=== PATIENT | male | born 1980 | race Caucasian/White ===

== ENCOUNTER 2019-03-08 20:37 | Emergency (ER) | payer SELFPAY ==
[2019-03-08 21:10] VITALS: BP 123/76; PULSE 109; RESP 20; TEMP 36.6; O2SAT 96; BMI 26.2
--- NOTE | 2019-03-08 22:06 | ECG_ITS ---
Measurements Intervals [place] Rate: 97 P: 64 IN: 153 QRS: 66 QRSD: 89 T: 63 QT: 318 QTc: 406 SINUS RHYTHM No previous ECG available for comparison Electronically Signed On 03-09-2019 16:17:32 CHASSIS INSPECTOR by Nathanael Ding M.D. [email or web address]
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
--- NOTE | 2019-03-08 22:06 | XR_ITS ---
WS: [id number] CHEST 2 VIEWS HISTORY: Chest pain for one week. COMPARISON: 10/15/2016 Lungs: Clear with no abnormality. No pleural effusion or pneumothorax. Cardiac size: Normal. Mediastinum/Aorta: Normal mediastinum. Bones: Normal. XR/XR chest 2V* [id number] IMPRESSION: Normal chest.
== END 2019-03-08 23:14 | disposition home or self-care (01) ==
PROVIDERS: Emergency Provider Emergency Medicine
DX: R06.00 Dyspnea, unspecified (principal); R07.89 Other chest pain
CPT/HCPCS: 71046; 93005; 99281

== ENCOUNTER 2019-08-04 22:37 | Emergency (ER) | payer SELFPAY ==
[2019-08-04 22:40] VITALS: BP 114/66; PULSE 97; RESP 18; TEMP 37.1; O2SAT 96; BMI 25.1
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
[2019-08-04] MEDS: HYDROcodone-acetaminophen 5-325 mg Tablet 1 TAB PO (23:13)
[2019-08-05 01:40] VITALS: BP 116/80; PULSE 70; RESP 14; O2SAT 96
[2019-08-05 01:42] LABS: Anion Gap 16.5 (5-19); Blood Urea Nitrogen 16 mg/dL (6-20); Calcium 9.2 mg/dL (8.5-10.5); Carbon Dioxide 24 mmol/L (22-29); Chloride 103 mmol/L (98-107); Glomerular Filtration Rate 94.4 mL/min (90-130); Glucose 91 mg/dL (65-115); Osmolality Calculated 286 mOsm/kg (285-295); Potassium 3.5 mmol/L (3.5-5.1); Sodium 140 mmol/L (136-145)
--- NOTE | 2019-08-05 01:45 | PC.NURSE ---
read and agree with assessment
== END 2019-08-05 01:45 | disposition home or self-care (01) ==
PROVIDERS: Emergency Provider Emergency Medicine
DX: S30.0XXA Contusion of lower back and pelvis, initial encounter (principal); W19.XXXA Unspecified fall, initial encounter; F17.210 Nicotine dependence, cigarettes, uncomplicated
CPT/HCPCS: 12345; 36415; 72100; 80048; 99281; 99283

== ENCOUNTER 2019-08-11 19:11 | Emergency (ER) | payer SELFPAY ==
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
[2019-08-11 19:36] VITALS: PULSE 77; RESP 16; TEMP 36.4; O2SAT 99; BMI 29.5
[2019-08-11] MEDS: HYDROcodone-acetaminophen 7.5-325 mg Tablet 1 TAB PO (20:15)
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
[2019-08-11 21:03] VITALS: BP 134/88; PULSE 77; RESP 18; O2SAT 98
--- NOTE | 2019-08-12 08:20 | DCPLANNER ---
contact manager had message to schedule a follow up appointment for patient with ortho. contact manager called ortho, spoke with Ruth, gave clinic patients information. contact manager was told that patients information would be printed and reviewed. Clinic will call patient with appointment information.
--- NOTE | 2019-08-12 15:41 | DCPLANNER ---
Patient has a follow up appointment scheduled for , August 19, 2019 at 9:30. Pat from ortho called pillowcase sewer and informed pillowcase sewer that an appointment has been scheduled, but is unable to reach patient at this time to give patient the appointment information.
--- NOTE | 2019-08-24 11:20 | DCPLANNER ---
Patient did attend appointment scheduled for 08.19.19 with ortho.
== END 2019-08-11 21:07 | disposition home or self-care (01) ==
PROVIDERS: Emergency Provider Emergency Medicine
DX: S43.101A Unspecified dislocation of right acromioclavicular joint, initial encounter (principal); V86.55XA Driver of 3- or 4- wheeled all-terrain vehicle (ATV) injured in nontraffic accident, initial encounter; F17.210 Nicotine dependence, cigarettes, uncomplicated
CPT/HCPCS: 12345; 29240; 73030; 99282; 99283

== ENCOUNTER 2019-08-23 15:08 | Outpatient (CLI) | payer SELFPAY ==
--- NOTE | 2019-08-23 15:24 | PC.NURSE ---
Patient here for outpatient Covid swab. Specimen collected utilizing N95 mask, gown, goggle, and gloves and after identification of patient verified via name and . Patient tolerated swab fair. Specimen to lab.
[2019-08-24 20:21] LABS: Coronavirus Lab Test PTC Negative
== END 2019-08-23 15:09 | disposition home or self-care (01) ==
LOC: LAB 15:10
PROVIDERS: Visit Provider Orthopaedic Surgery
DX: Z01.818 Encounter for other preprocedural examination (principal)
CPT/HCPCS: 87635

== ENCOUNTER 2019-08-25 06:18 | Day surgery (SDC) | payer SELFPAY ==
[2019-08-25] VITALS (11 sets, daily range): BP systolic 97–121; BP diastolic 67–83; PULSE 71–85; RESP 16–18; TEMP 36.4–36.9; O2SAT 90–100
[2019-08-25] MEDS: sodium chloride 0.9% 1,000 ML 30 ML IV (06:50)
--- NOTE | 2019-08-25 06:55 | W.PM.OPSUD ---
Surgery/Procedure H&P Update DATE OF PROCEDURE: August 25, 2019 DATE H&P PERFORMED: 08/19/19 PREOP DIAGNOSIS: Right acromioclavicular joint separate PLANNED PROCEDURE: Operation Date: 08/25/19 08:40 Proposed Procedures p AC Separation Repair (Shoulder)(Right) - Vu Gray MD
--- NOTE | 2019-08-25 08:05 | ANES.PREANE2 ---
Pre-Anesthetic Assessment Pre-Anesthetic Assessment: Height/Weight: Height 1.75 m Weight 80.739 kg Temp Pulse Resp BP Pulse Ox 98 F 85 18 105/74 98 08/25/19 06:33 08/25/19 06:33 08/25/19 06:33 08/25/19 06:33 08/25/19 06:33 Preop Diagnosis: Right acromioclavicular joint separate Proposed Procedure: Operation Date: 08/25/19 08:40 Proposed Procedures p AC Separation Repair (Shoulder)(Right) - Vu Gray MD Familial anesthetic complications: none Was Beta Jeannie taken within 24 hours: N/A Last intake: Intake Last Liquid Date 08/24/19 Last Liquid Time 20:00 Last Solid Date 08/24/19 Last Solid Time 20:00 Last Intake: 20:00 Social: Social History: Alcohol (on weekends) and Tobacco Packs per day: 1 Pack years: 20+ Exam: Pre-Anes Outpt Exam: alert, oriented x 3, clear to auscultation bilaterally and regular rate & rhythm Airway: Submandibular: WNL Cervical ROM: WNL MP: 2 Dentition: Full Additional comments: poor missing upper middle Pulmonary: Pulmonary: None reported CV/HEM: CV/HEM: None reported : : None reported Hepatic: Hepatic: None reported GI: GI: None reported Metabolic: Metabolic: None reported Musc/skel: Musc/skel: None reported Neuropsych: Neuropsych: None reported Anesthetic Plan: ASA status: 2 Anesthesia: Anesthesia Evaluation, General and Regional (specify below) (ISB on Right) Risk of > 500 ml blood loss (7ml/kg in children): No Meds/Allergies Current Medications: Current Medications Generic Name Dose Route Start Last Admin Trade Name Freq PRN Reason Stop Dose Admin Sodium Chloride 1,000 mls @ 30 ml s/hr 08/25/19 06:30 08/25/19 06:50 Sodium Chloride 0.9% IV 08/26/19 06:29 30 mls/hr .Q24H HASMUKH Administration PFSH Anesthesia PFSH: Social History Smoking and tobacco status: current every day smoker Data Anesthesia Cardiac Studies: No Data to Display
[2019-08-25] MEDS: fentaNYL 50 mcg/mL INJ 2mL 100 MCG IVP (09:00)
[2019-08-25] MEDS: midazolam 1 mg/mL INJ 2 mL 2 MG IVP (09:00)
--- NOTE | 2019-08-25 09:55 | ANES.PROC ---
Anesthesia Procedures Procedure/Date: 08/25/19 Nerve Block ^: Nerve Block 1: Main Anesthesia: general anesthesia Time Out Performed: Yes Consent: requested by attending/covering physician, risks and benefits reviewed, patient agrees to proceed and other (Right) Nerve block location: interscalene Anesthesia monitors applied: pulse oximetry and BP cuff Nerve block position: supine Anesthetic Used: lidocaine 1% and ropivicaine 0.5% Amount of anesthesia used (mL): 30 Nerve Stimulator Used?: Yes Interscalene/Femoral BLK: 2 stimuplex 22 g needle used for position and inplane approach Injection: neg aspiration of heme Patient Tolerated Procedure: well Complications: none Additional Comments: Full Shoulder and arm twitch at 1.2mA; response maintained but faded at 0.4mA; no paresthesia or complication. Tolerated well with sedation and encouragement.
--- NOTE | 2019-08-25 11:32 | P.OP_ITS ---
Operative Report Date of procedure: August 25, 2019 Pre-op Diagnosis: Right acromioclavicular joint separation Post-op diagnosis: same Post-op Findings: Same Procedure Done: Open right acromioclavicular joint ligament reconstruction with autologous semi-tendinosis hamstring graft, distal clavicle excision Pathology: none sent Surgeon: Vu Gray Anesthesia: General and Nerve Block (Interscalene block) Estimated blood loss (mL): 100 Complications: None Findings: The patient had a type III right acromioclavicular joint separation with dorsal dislocation of the clavicle relative acromion that was passively reducible Condition: stable Disposition: PACU Procedure: The patient was taken to the operating room and given 2 g of Ancef. He is prepped and draped his right lower extremity exposed in the beachchair position. A timeout was performed. A tourniquet was inflated to 300 mmHg. A 3 cm long incision was made over the Pez anserine tendons. The sartorius fascia was split revealing a healthy appearing semi-tendinosis tendon. Using a scalpel it was elevated off its insertion on the medial tibia. Closed-end tendon stripper was used to harvest the tendon proximally. On the back table was freed of muscle and both ends fixed with a ultra braid suture. The sartorius fascia was closed with 2-0 Vicryl. The subcutaneous tissues were closed with 2-0 Vicryl. The skin was closed with skin beatriz. 0 dressings were applied. The right shoulder was then prepped in the usual fashion with the arm free. Incision was made from the anterior border of the acromion to the coracoid over a distance of approximately 4 cm. Dissection was carried down to the deltoid musculature with electrocautery and superior and inferior flaps were freed allowing visualization of the distal clavicle dorsal acromion and deltoid to the level of the coracoid. The cautery was then used to elevate the deltoid t rapezial fascia off the distal clavicle. Blunt Homans were placed anteriorly and posteriorly and a 5 mm distal section of the clavicle removed to eliminate as a source of future arthritis and pain. The deltoid was split in line with its fibers revealing to the coracoid. A suture passer was used to shuttle 1 ultra braid suture around the base of the coracoid. A 4 mm drill hole was made from the dorsal clavicle just above the conoid tubercle. An ultra braid suture was passed through that tunnel. A second trapezoid tunnel 4.7 mm in diameter was made 20 mm posterior and lateral to that drill hole. An Ethibond suture was passed through that. Next the ultra braid sutures from one end of the semi-tendinosis graft and 2 ultra tapes were shoulder around the coracoid. The tapes and one end of the semi-tendinosis graft was shuttled through the conoid hole in the clavicle. The free semi- tendinosis and was shuttled through the trapezoid tunnel. Ultra tape sutures were secured drawing the clavicle down to the coracoid with visualization of the resected acromioclavicular joint during the process. The free ends of semi- gnosis tendon were then sutured to each other providing the tenderness restraint to the coracoclavicular ligament reconstruction. Next a 1.8 mm Q fix anchor was placed centrally in the acromion. 2 free ends of suture were brought over the acromioclavicular joint and secured with a luggage tag suture to the dorsal acromion rebuilding the dorsal and posterior capsule. A free needle was used to past the free ends of suture through the anterior capsule and tendon and posterior capsule and tendon respectively and secured further biological a reinforcing the capsular repair. The wound was irrigated with saline. The deltotrapezial fascia was closed with 0 Ethibond. The subcutaneous tissues were closed with 2-0 Vicryl. The skin was closed with skin beatriz. 0 dressings were applied. The patient was placed in a sling, extubated, and taken recovery in stable condition.
[2019-08-25] MEDS: meperidine 50 mg/mL INJ 12.5 MG IVP (11:35)
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
[2019-08-25] MEDS: oxyCODONE-APAP 5-325 mg Tablet 1 TAB PO (12:31)
== END 2019-08-25 12:53 | disposition home or self-care (01) ==
PROVIDERS: Visit Provider Orthopaedic Surgery
PROC: (CPT 23120; principal; 2019-08-25 08:40)
PROC: (CPT 23120; 2019-08-25 08:40)
DX: S43.101A Unspecified dislocation of right acromioclavicular joint, initial encounter (principal); V86.95XA Unspecified occupant of 3- or 4- wheeled all-terrain vehicle (ATV) injured in nontraffic accident, initial encounter; F17.210 Nicotine dependence, cigarettes, uncomplicated; Z79.891 Long term (current) use of opiate analgesic
CPT/HCPCS: 23120; 23552; 12345; 96374; 96375; C1713; J0690; J2175; J2250; J2370; J2405; J2704; J2795; J3010; J3490; J7030

== ENCOUNTER 2019-10-06 12:00 | Emergency (ER) | payer SELFPAY ==
[2019-10-06 13:10] VITALS: BP 124/81; PULSE 101; RESP 14; TEMP 37; O2SAT 100; BMI 25.1
--- NOTE | 2019-10-06 14:01 | ED_ITS ---
HPI - Skin/Abscess/Foreign Bdy General: Chief complaint: Skin/Abscess/Foreign Body Stated complaint: hook in knee Time Seen by Provider: 10/06/19 13:13 Source: patient Mode of arrival: ambulatory Limitations: no limitations History of Present Illness: HPI narrative: Patient is a 38-year-old male who presents to ED today with complaints of a fishhook to his left knee is been pre sent over the past 3 days. Patient states he did not seek medical attention immediately because he could not find a ride. Last tetanus was 3 years ago. He has noticed a small amount of drainage from the fishhook site. Patient ambulating on extremity normally. He still has full range of motion of his knee. complaint: foreign body Onset (ago): day(s) Tetanus up to date: yes Location: LLE Associated symptoms: Reports no associated symptoms Review of Systems Musc: Reports: other (fish hook to L knee) [facility] ED PFSH: Social History Smoking and tobacco status: current every day smoker Physical Exam Const: COMMON NORMALS: no acute distress, average body habitus, patient oriented x3, no limitations, healthy appearing, alert and well nourished Extremity: OTHER: small barbed fish hook to L lateral knee; superficial; scant amount of redness and purulent drainage noted Neuro: COMMON NORMALS: patient oriented x3 SENSORIUM/ORIENTATION: Yes alert Skin: OTHER: see extremity assessment Procedures Foreign Body Removal Time Out Performed: no Site: left and lower extremity Description of foreign body: fish hook Sedation/Analgesia: other (local lidocaine) Technique: manual removal (hemostats to push barbed hook through, britany cut, hook retracted ) Confirmed by:: direct visualization Complications: none Post-procedure exam: awake, alert Neurovascular: normal distal pulse, normal capillary fill, distal light touch sensation intact, distal motor function normal, no signs of compartment syndrome and no change from pre-procedure Course Vital Signs: Vital signs: Vital Signs Temperature 98.6 F 10/06/19 13:10 Pulse Rate 101 H 10/06/19 13:10 Respiratory Rate 14 10/06/19 13:10 Blood Pressure 124/81 10/06/19 13:10 Pulse Oximetry 100 10/06/19 13:10 Discharge Plan Discharge Patient Disposition: Home Clinical Impression: Fish hook injury of left lower leg Qualifiers: Encounter type: initial encounter Qualified Code(s): S89.92XA - Unspecified injury of left lower leg, initial encounter Condition: Stable Prescriptions: New Keflex 500 mg capsule 500 mg PO Q6H 7 Days Qty: 28 RF: 0 No Action oxycodone-acetaminophen [Percocet] 5-325 mg tablet 1 tab PO Q4H PRN (Reason: pain) 7 Days Qty: 40 RF: 0 oxycodone-acetaminophen [Percocet] 5-325 mg tablet 1 tab PO Q4H PRN (Reason: pain) 7 Days Qty: 40 RF: 0 methocarbamol [Robaxin-750] 750 mg tablet 750 mg PO Q6H Qty: 30 RF: 0 naproxen [Naprosyn] 500 mg tablet 500 mg PO BID PRN (Reason: pain) Qty: 20 RF: 0 Percocet 5-325 mg tablet 1 tab PO Q4H PRN (Reason: pain) Qty: 30 RF: 0 Discharge Orders: Discharge Order (Routine); Ordered 10/06/19 Ordered By: Coreen Fowler Activity Restrictions/Additional Instructions: Return to the emergency department for worsening redness, swelling, drainage, or fevers. Coding Level of Care Code ED Manager Dental for Demetria Bazan
== END 2019-10-06 14:14 | disposition home or self-care (01) ==
PROVIDERS: Emergency Provider Physician Assistant
DX: S81.042A Puncture wound with foreign body, left knee, initial encounter (principal); W26.8XXA Contact with other sharp object(s), not elsewhere classified, initial encounter; F17.210 Nicotine dependence, cigarettes, uncomplicated
CPT/HCPCS: 12345; 99281

== ENCOUNTER → 2020-11-02 13:39 | Outpatient (BNVA) | payer OTHER, SELFPAY | PROVIDERS: Visit Provider Nurse Practitioner Family | DX: Z20.822 Contact with and (suspected) exposure to COVID-19 (principal) | CPT/HCPCS: 87426; 87635 ==

== ENCOUNTER 2021-02-26 22:43 | Emergency (ER) | payer SELFPAY ==
[2021-02-26 22:56] VITALS: BP 134/78; PULSE 121; RESP 18; TEMP 36.8; O2SAT 97; BMI 30.1
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
[2021-02-26] MEDS: HYDROcodone-acetaminophen 5-325 mg Tablet 1 TAB PO (23:42)
[2021-02-26] MEDS: tetanus-dipt-pertussis 0.5 mL SDV IM (23:44)
[2021-02-27] MEDS: HYDROcodone-acetaminophen 5-325 mg Tablet 1 TAB PO (00:51)
[2021-02-27 01:01] VITALS: BP 144/77; PULSE 78; RESP 18; O2SAT 96
--- NOTE | 2021-02-27 09:23 | DCPLANNER ---
Addendum entered by Peyton Medina 03/09/21 12:09: Patient had a follow up appointment scheduled with ortho on 03.06.[address] Gray at ortho - patient did attend appointment. Original Note: front end manager had message to schedule a follow up appointment for patient with ortho. front end manager called the ortho clinic, spoke with Lindsey, gave clinic patients information. front end manager was told that patients information would be printed and reviewed. Clinic will call patient with appointment information.
== END 2021-02-27 01:00 | disposition home or self-care (01) ==
PROVIDERS: Emergency Provider Nurse Practitioner Family
DX: S52.225A Nondisplaced transverse fracture of shaft of left ulna, initial encounter for closed fracture (principal); S82.54XA Nondisplaced fracture of medial malleolus of right tibia, initial encounter for closed fracture; S01.01XA Laceration without foreign body of scalp, initial encounter; F17.210 Nicotine dependence, cigarettes, uncomplicated; Y00.XXXA Assault by blunt object, initial encounter; Z23 Encounter for immunization
CPT/HCPCS: 12002; 29125; 29515; 70450; 72125; 73090; 73610; 90471; 90715; 99283

== ENCOUNTER 2021-03-04 13:12 | Emergency (ER) | payer SELFPAY ==
[2021-03-04 14:04] VITALS: BP 117/80; PULSE 95; RESP 20; TEMP 36.5; O2SAT 97; BMI 30.1
--- NOTE | 2021-03-04 16:05 | W.ED.GENADLT ---
HPI - General Adult General: Chief complaint: General Medical Stated complaint: right leg recheck and pain in right leg Time Seen by Provider: 03/04/21 14:10 History of Present Illness: HPI narrative: Patient states that posterior leg splint is irritating his fracture. He has unwrapped it and rewrapped it and now says he is out of pain medication and is requesting more pain medication. Patient does have crutches to use. Onset (ago): day(s) Location: lower extremity Associated symptoms: Deny chest pain, dyspnea, headache(s), nausea, rash or vomiting Review of Systems Const: Denies: fever(s), chills or body aches Eyes: Denies: change in vision or blurry vision ENMT: Denies: throat pain or nasal congestion Card: Denies: chest pain or dyspnea on exertion Resp: Denies: dyspnea, productive cough or non-productive cough GI: Denies: abdominal pain, nausea or vomiting : Denies: difficulty urinating Musc: Reports: extremity pain (Says that part of the cast is rubbing on leg. Denies any abrasion or ulcer) Skin/Breast: Denies: rash Neuro: Denies: headache(s) Psych: Denies: anxiety or depression Gil/Lymph: Denies: easy bruising PFSH ED PFSH: Social History Smoking and tobacco status: current every day smoker Physical Exam Const: COMMON NORMALS: no acute distress GENERAL APPEARANCE: cooperative Resp: COMMON NORMALS: normal respiratory effort Extremity: LEFT LOWER EXTREMITY: Yes lower leg (Cast in place. OCL does appear twisted. No swelling abrasions noted.) Left lower leg: Yes neurovascular exam (Intact.) Course Vital Signs: Vital signs: Vital Signs Temperature 97.7 F 03/04/21 14:04 Pulse Rate 95 03/04/21 14:04 Respiratory Rate 20 H 03/04/21 14:04 Blood Pressure 117/80 03/04/21 14:04 Pulse Oximetry 97 03/04/21 14:04 Discharge Plan Discharge Patient Disposition: Home Clinical Impression: Fracture of medial malleolus, right, closed Qualifiers: Encounter type: subsequent encounter Fracture alignment: nondisplaced Fracture healing: with routine healing Qualified Code(s): S82.54XD - Nondisplaced fracture of medial malleolus of right tibia, subsequent encounter for closed fracture with routine healing Condition: Stable Prescriptions: New Celebrex 100 mg capsule 100 mg PO BID Qty: 20 RF: 0 Discontinued naproxen [Naprosyn] 500 mg tablet 500 mg PO BID PRN (Reason: pain) Qty: 20 RF: 0 No Action hydrocodone-acetaminophen 5-325 mg tablet 1 tab PO Q6H PRN (Reason: pain) Qty: 14 RF: 0 Discharge Orders: Discharge ED (Routine); Ordered 03/04/21 Ordered By: Nicolas Powell Discharge Diet: Usual diet Discharge Activity: Increase activity as tolerated Activity Restrictions/Additional Instructions: Continue use crutches. Take medication as directed. Follow-up with your orthopedic appointment scheduled on . Coding Level of Care Code ED Retail Sales Associate Bilingual for Demetria Bazan
[2021-03-04 16:49] VITALS: BP 116/88; PULSE 89; RESP 18; O2SAT 97
== END 2021-03-04 16:51 | disposition home or self-care (01) ==
PROVIDERS: Emergency Provider Nurse Practitioner Family
DX: S82.54XA Nondisplaced fracture of medial malleolus of right tibia, initial encounter for closed fracture (principal); F17.210 Nicotine dependence, cigarettes, uncomplicated; X58.XXXA Exposure to other specified factors, initial encounter
CPT/HCPCS: 99282

== ENCOUNTER → 2021-03-06 09:50 | Outpatient (BNVA) | payer BC, SELFPAY | PROVIDERS: Referring Provider Nurse Practitioner Family; Visit Provider Orthopaedic Surgery | DX: S52.692A Other fracture of lower end of left ulna, initial encounter for closed fracture (principal); X58.XXXA Exposure to other specified factors, initial encounter | CPT/HCPCS: 73090 ==

== ENCOUNTER 2021-03-06 14:17 | Outpatient (CLI) | payer SELFPAY | END 2021-03-06 14:18 | disposition home or self-care (01) | LOC: SPT 14:22 | PROVIDERS: Visit Provider Orthopaedic Surgery | DX: Z46.89 Encounter for fitting and adjustment of other specified devices (principal); S82.54XD Nondisplaced fracture of medial malleolus of right tibia, subsequent encounter for closed fracture with routine healing; S52.692D Other fracture of lower end of left ulna, subsequent encounter for closed fracture with routine healing; X58.XXXD Exposure to other specified factors, subsequent encounter | CPT/HCPCS: 97760; L3982; L4361 ==

== ENCOUNTER → 2021-03-28 08:29 | Outpatient (BNVA) | payer SELFPAY | PROVIDERS: Visit Provider Orthopaedic Surgery | DX: S82.54XD Nondisplaced fracture of medial malleolus of right tibia, subsequent encounter for closed fracture with routine healing (principal); X58.XXXD Exposure to other specified factors, subsequent encounter | CPT/HCPCS: 73090; 73610 ==

== ENCOUNTER → 2021-05-01 13:15 | Outpatient (BNVA) | payer BC, SELFPAY | PROVIDERS: Visit Provider Orthopaedic Surgery | DX: S82.51XA Displaced fracture of medial malleolus of right tibia, initial encounter for closed fracture (principal); S52.209A Unspecified fracture of shaft of unspecified ulna, initial encounter for closed fracture; X58.XXXA Exposure to other specified factors, initial encounter | CPT/HCPCS: 73090 ==

== ENCOUNTER → 2021-05-10 00:01 | Outpatient (BNVA) | payer BC, SELFPAY | PROVIDERS: Visit Provider Orthopaedic Surgery | DX: Z20.822 Contact with and (suspected) exposure to COVID-19 (principal) | CPT/HCPCS: 87635 ==

== ENCOUNTER 2021-05-17 06:20 | Day surgery (SDC) | payer BC, SELFPAY ==
[2021-05-16 12:52] VITALS: BMI 31.7
[2021-05-17] VITALS (17 sets, daily range): BP systolic 118–181; BP diastolic 81–111; PULSE 77–93; RESP 11–23; TEMP 36.1–36.6; O2SAT 94–100
--- NOTE | 2021-05-17 | SCC_ITS ---
Procedure done: Open reduction internal fixation left ulnar shaft 14.8 seconds of fluoroscopic guidance, for a cumulative dose of 0.38 mGy, was provided to Dr. Gray by the radiology department. C-arm images of the LEFT forearm were saved for the patient's permanent record. [facility]
--- NOTE | 2021-05-17 | XR_ITS ---
WS: [id number] INTRAOPERATIVE TECHNIQUE: 4 Spot fluoroscopic images for intraoperative purposes. FLUOROSCOPY TIME: 14.8 seconds CLINICAL INFORMATION: fracture of left ulnar shaft COMPARISON: None. FINDINGS: Plate and screw fixation involving the distal 3rd ulna. Hardware appears in good position. Fixated fr acture with callus formation. XR/XR forearm LT 2V [id number] IMPRESSION: Images obtained for intraoperative purposes.
[2021-05-17] MEDS: sodium chloride 0.9% 1,000 ML 30 ML IV (07:00)
--- NOTE | 2021-05-17 07:55 | ANES.PREANE2 ---
Pre-Anesthetic Assessment Height/Weight: Height 1.75 m Weight 97.522 kg Temp Pulse Resp BP Pulse Ox 97 F L 88 18 133/91 96 05/17/21 06:53 05/17/21 06:53 05/17/21 06:53 05/17/21 06:53 05/17/21 06:53 Preop Diagnosis: Fracture Left ulnar shaft Operation Date: 05/17/21 07:25 Proposed Procedures p ORIF Wrist 09602/closed fracture of L ulnar shaft S52.225A(Left) - Vu Gray MD Familial anesthetic complications: None Was Beta Jeannie taken within 24 hours: N/A Was Clonidine taken within 24 hours: N/A Last intake: Intake Last Liquid Date 05/16/21 Last Liquid Time 20:00 Last Solid Date 05/16/21 Last Solid Time 20:00 Social Tobacco and No alcohol Exam alert, oriented x 3 and regular rate & rhythm B/L wheezing Airway Submandibular: within normal limits Cervical ROM: within normal limits Mallampati: Class II Dentition: chipped Comments: Comments: Missing teeth Poor dentition Denies loose teeth Pulmonary None reported CV/HEM None reported METS > 4 None reported Hepatic None reported GI None reported Metabolic None reported Musc/skel Ulna and malleolus fractures Neuropsych None reported Anesthetic Plan ASA status: 2 Anesthesia: Anesthesia Evaluation and General Other: We discussed risk and benefits of general anesthesia including PONV, sore throat (sometimes severe), corneal abrasion, positioning and peripheral nerve injuries, life threatening allergic reaction, post operative ICU admission requiring prolonged intubation, stroke, heart attack, , and rare incidences of recall. Patient consents to proceed with general anesthesia. Risk of > 500 ml blood loss (7ml/kg in children): No Other Pertinent Information Albuterol ordered pre op Medications/Allergies Home Medications Medication Instructions Recorded Confirmed Last Taken Type celecoxib 100 mg capsule (Celebrex) 100 mg PO BID #20 cap 03/04/21 05/17/21 2 Days Ago Rx ~05/15/21 Cam Walker #1 ea 03/06/21 05/16/21 Unknown Rx Fast Form #1 ea 03/06/21 05/16/21 Unknown Rx Walker #1 ea 03/06/21 05/16/21 Unknown Rx Allergies Allergy/AdvReac Type Severity Reaction Status Date / Time No Known Allergies Allergy Verified 05/17/21 06:39 [facility] Anesthesia Social History Smoking and tobacco status: current every day smoker Data Anesthesia Cardiac Studies: No Data to Display
--- NOTE | 2021-05-17 07:59 | PC.NURSE ---
breathing treatment ordered by Dr. Carty and given by RT.
--- NOTE | 2021-05-17 08:31 | W.PM.OPSUD ---
Surgery/Procedure H&P Update DATE OF PROCEDURE: May 17, 2021 DATE H&P PERFORMED: 05/01/21 H&P UPDATE INFORMATION: I have reviewed H&P completed within last 30 days PREOP DIAGNOSIS: Fracture Left ulnar shaft PLANNED PROCEDURE: Operation Date: 05/17/21 07:25 Proposed Procedures p ORIF left ulnar shaft
--- NOTE | 2021-05-17 09:46 | PM.OP ---
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 He had clear periosteal callus consistent with an impending hypertrophic nonunion. Surgical stabilization was chosen to better stabilize the fracture and facilitate healing Procedure: The patient was taken to the operating room and given a general anesthesia. He was prepped and draped in the supine position with his left arm exposed on a fracture table. A timeout was performed. An 8 cm long incision was made over the subcutaneous border of the ulna centered over the fracture. I dissection was carried down to the lateral ulna. Electrocautery was used to elevate the adherent periosteum and scar tissue about the fracture laterally. A [place] was then used to mobilize soft tissues anteriorly and posteriorly subperiosteally over the bone. Callus was removed over the lateral cortex of the ulna with a rongeur. 6-hole compression plate was fashioned over the ulna. It was fixed with 3 nonlocking screws proximally and distally. Applying compression across the fracture site. Intraoperative imaging showed satisfactory position of the hardware. Wounds were irrigated with saline. Deep tissues were closed with 2-0 Vicryl and subcutaneous tissues with 3-0 Vicryl. The skin was closed with skin beatriz. Xeroflo gauze 4 x 4's compressive web roll and a volar splint were applied. The patient was extubated taken to the recovery in stable condition.
[2021-05-17] MEDS: HYDROmorphone 1 mg/mL INJ 1 mL 0.5 MG IVP ×3 (10:01→10:21)
--- NOTE | 2021-05-17 10:10 | PC.NURSE ---
Al Gonsalez CRNA stated nurse could move to Dilaudid for pain control.
[2021-05-17] MEDS: HYDROcodone-acetaminophen 7.5-325 mg Tablet 1 TAB PO (11:07)
--- NOTE | 2021-05-17 13:18 | ANE.PACU2 ---
Inpatient post-anesthesia follow up: Airway intact: Yes Vital signs: Temperature 97.9 F Pulse Rate 79 Respiratory Rate 14 Blood Pressure 169/103 Pulse Oximetry 95 Oxygen Delivery Me thod Room Air Oxygen Flow Rate Fraction of Inspir ed Oxygen Hydration adequate: Yes Nausea and vomiting: No Pain level: 3 Mental status: Baseline Additional Comments: Pain improved
== END 2021-05-17 11:32 | disposition home or self-care (01) ==
PROVIDERS: Visit Provider Orthopaedic Surgery
PROC: (CPT 25545; principal; 2021-05-17 08:45)
DX: S52.202K Unspecified fracture of shaft of left ulna, subsequent encounter for closed fracture with nonunion (principal); X58.XXXD Exposure to other specified factors, subsequent encounter; F17.210 Nicotine dependence, cigarettes, uncomplicated
CPT/HCPCS: 25545; 73090; 76000; 94640; C1713; J0690; J1100; J1170; J1580; J1885; J2405; J2704; J3010; J7030; J7611

== ENCOUNTER → 2021-06-01 10:04 | Outpatient (BNVA) | payer BC, SELFPAY | PROVIDERS: Visit Provider Orthopaedic Surgery | DX: S82.51XA Displaced fracture of medial malleolus of right tibia, initial encounter for closed fracture (principal); X58.XXXA Exposure to other specified factors, initial encounter | CPT/HCPCS: 73090 ==

== ENCOUNTER → 2021-07-03 13:00 | Outpatient (BNVA) | payer BC, SELFPAY | PROVIDERS: Visit Provider Nurse Practitioner Family | DX: Z98.890 Other specified postprocedural states (principal); Z87.81 Personal history of (healed) traumatic fracture | CPT/HCPCS: 73090 ==

== ENCOUNTER 2022-02-01 12:27 | Emergency (ER) | payer BC, SELFPAY ==
[2022-02-01 12:31] VITALS: BP 139/77; PULSE 100; RESP 18; TEMP 36.6; O2SAT 95; BMI 42.2
--- NOTE | 2022-02-01 13:05 | W.ED.MALEGU ---
HPI - Male Genitourinary General: Chief complaint: Urogenital-Male Stated complaint: urinary pain Time Seen by Provider: 02/01/22 12:36 Source: patient Mode of arrival: ambulatory History of Present Illness: 41-year-old male who presents to the emergency room complaining of dysuria. He states he feels like there is a stone caught in his penis. He did have some hematuria a week ago that has resolved. But he still has a discomfort with urination. He says it callahan when he urinates. He denies any penile drainage he has not had any new partners recently. He tested positive for hep C a few months ago and actually finished his Harvoni treatment yesterday. He does have a little bit of flank pain more on the right than on the left. No fever sweats chills or vomiting. Onset (ago): day(s) Duration: constant Location: penis Severity: moderate Quality: sharp Relieving factors: none Exacerbating factors: urination Associated symptoms: Reports dysuria and hematuria; Deny discharge, fevers/chills, nausea, rash, swelling, urinary incontinence, urinary retention, mass or vomiting Related Data: Sexually active: Yes Review of Systems Const: Denies: fever(s), chills, body aches, change in appetite, fatigue or malaise ENMT: Denies: throat pain, ear or mastoid pain, nasal discharge or nasal congestion Card: Denies: chest pain, palpitations, irregular heart rhythm, edema, dyspnea on exertion or orthopnea Resp: Denies: dyspnea, productive cough or non-productive cough GI: Denies: abdominal pain, nausea, vomiting or diarrhea : Reports: flank pain, difficulty urinating, dysuria and hematuria; Denies: urinary frequency, urinary urgency or urinary incontinence Skin/Breast: Denies: rash or pruritus PFSH ED PFSH: Medical History (Updated 02/01/22 @ 15:49 by Avni Hurley DO) Fracture of medial malleolus, right, closed Fracture of ulnar shaft, closed Hepatitis C Treated with Harvoni completed treatments 01/31/2022 Surgical History (Updated 02/01/22 @ 14:24 by Avni Hurley DO) Status 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 Social History Smoking and tobacco status: current every day smoker Physical Exam Const: GENERAL APPEARANCE: cooperative and comfortable ORIENTATION/CONSCIOUSNESS: Yes awake, Yes oriented to person, Yes oriented to place and Yes oriented to time HENMT: COMMON NORMALS: normocephalic, atraumatic and hearing grossly normal bilaterally HEAD & SCALP: normocephalic and atraumatic Resp: COMMON NORMALS: normal respiratory effort, No retractions, No use of accessory muscles and clear to auscultation bilaterally AUSCULTATION: clear to auscultation bilaterally Cardio: COMMON NORMALS: regular rate, regular rhythm and No murmurs present (Cardio) RATE: regular rate RHYTHM: regular rhythm GI: COMMON NORMALS: Soft to palpation and No hepatosplenomegaly present AUSCULTATION: Yes normoactive bowel sounds PALPATION: Yes Soft to palpation, No Tenderness to palpation present (GI), No Guarding due to palpation present (GI) and Yes No hepatosplenomegaly present Extremity: COMMON NORMALS: normal to inspection, capillary refill normal, no clubbing, cyanosis or edema, no calf tenderness and no pedal edema Neuro: SENSORIUM/ORIENTATION: Yes oriented to person, Yes oriented to place and Yes oriented to time Skin: COMMON NORMALS: no rashes or lesions noted GENERAL SKIN EXAM: no rashes or lesions noted Course Vital Signs: Vital signs: Vital Signs Temperature 97.8 F 02/01/22 12:31 Pulse Rate 100 02/01/22 12:31 Respiratory Rate 18 02/01/22 12:31 Blood Pressure 139/77 02/01/22 12:31 Pulse Oximetry 95 02/01/22 12:31 Oxygen Delivery Me thod 02/01/22 12:31 MDM - Male Medical Decision Making UA negative we will run GC and chlamydia on urine. Did have a little bit of blood in his urine CTA was negative for any stones. Direct observed therapy for empiric treatment for urethritis Rocephin and Zithromax given discharged home on doxycycline. Medical Records I reviewed the patient's medical records. Lab Data I reviewed the patient's lab results. 02/01/22 13:05 02/01/22 13:05 Radiology Impressions Abdomen/Pelvis CT 02/01/22 14:20 IMPRESSION: 1. No renal obstruction or ureteral obstruction. 2. Normal appendix. 3. No evidence for acute diverticulitis. Laboratory Results WBC 8.3 10^3/uL (4.0-10.0) 02/01/22 13:05 RBC 5.66 10^6/uL (4.1-5.3) H 02/01/22 13:05 Hgb 16.3 g/dL (11.7-16.6) 02/01/22 13:05 Hct 49.4 % (42.0-52.0) 02/01/22 13:05 MCV 87.3 fl (80-94) 02/01/22 13:05 MCH 28.8 pg (28.0-34.0) 02/01/22 13:05 MCHC 33.0 g/dL (30.0-36.0) 02/01/22 13:05 RDW 11.7 % (12.1-15.1) L 02/01/22 13:05 Plt Count 288 10^3/cmm (130-400) 02/01/22 13:05 MPV 9.5 fL (7.4-10.4) 02/01/22 13:05 Neut % (Auto) 55.1 % 02/01/22 13:05 Lymph % (Auto) 30.9 % 02/01/22 13:05 [place] % (Auto) 9.7 % 02/01/22 13:05 Eos % (Auto) 3.5 % 02/01/22 13:05 Baso % (Auto) 0.6 % 02/01/22 13:05 Neut # (Auto) 4.54 10^3/uL (1.8-7.7) 02/01/22 13:05 Lymph # (Auto) 2.6 10^3/uL (0.8-4.8) 02/01/22 13:05 [place] # (Auto) 0.8 10^3/uL (0.2-0.9) 02/01/22 13:05 Eos # (Auto) 0.3 10^3/uL (0.0-0.8) 02/01/22 13:05 Baso # (Auto) 0.1 10^3/uL (0.0-0.1) 02/01/22 13:05 Nucleated RBC % (auto) 0 % 02/01/22 13:05 Nucleated RBCs # 0.0 /100WBC 02/01/22 13:05 Sodium 137 mmol/L (136-145) 02/01/22 13:05 Potassium 4.1 mmol/L (3.5-5.1) 02/01/22 13:05 Chloride 101 mmol/L (98-107) 02/01/22 13:05 Carbon Dioxide 27 mmol/L (22-29) 02/01/22 13:05 Anion Gap 13.1 (5-19) 02/01/22 13:05 BUN 15 mg/dL (6-20) 02/01/22 13:05 Creatinine 1.0 mg/dL (0.7-1.2) 02/01/22 13:05 GFR Calculation 82.3 mL/min (90-130) L 02/01/22 13:05 Glucose 99 mg/dL (65-115) 02/01/22 13:05 Calculated Osmolality 285 mOsm/kg (285-295) 02/01/22 13:05 Calcium 9.7 mg/dL (8.5-10.5) 02/01/22 13:05 Urine Color Yellow (Yellow) 02/01/22 13:40 Urine Appearance Clear (CLEAR) 02/01/22 13:40 Urine pH 7 (5-7) 02/01/22 13:40 Ur Specific [place] 1.010 (1.005-1.030) 02/01/22 13:40 Urine Protein Neg (Negative) 02/01/22 13:40 Urine Glucose (UA) Norm (Normal) 02/01/22 13:40 Urine Ketones Negative (Negative) 02/01/22 13:40 Urine Blood 2+ (Negative) H 02/01/22 13:40 Urine Nitrate Negative (Negative) 02/01/22 13:40 Urine Bilirubin Neg (Negative) 02/01/22 13:40 Urine Urobilinogen Neg mg/dL (Negative) 02/01/22 13:40 Ur Leukocyte Esterase Negative (Negative) 02/01/22 13:40 Urine RBC 0-4 /hpf (0-2) H 02/01/22 13:40 Urine WBC 0-4 /hpf (0-5) H 02/01/22 13:40 Ur Squamous Epith Cells Rare /hpf (0-5) 02/01/22 13:40 Amorphous Sediment Not Reportable 02/01/22 13:40 Urine Bacteria Trace /hpf (NONE) 02/01/22 13:40 Discharge Plan Discharge Patient Disposition: Home Clinical Impression: Urethritis Condition: Stable Prescriptions: New doxycycline hyclate 100 mg capsule 100 mg PO BID 14 Days Qty: 28 0RF No Action (DME) Fast Form See Rx Instructions .Route .MEDSUPPLY Qty: 1 0RF Rx Instructions: As directed (DME) Talha Salmeron See Rx Instructions .Route .MEDSUPPLY Qty: 1 0RF Rx Instructions: As directed (DME) Walker See Rx Instructions .Route .MEDSUPPLY Qty: 1 0RF Rx Instructions: As directed hydrocodone-acetaminophen 5-325 mg tablet 1 tab PO Q4H PRN (Reason: pain) 7 Days Qty: 30 0RF celecoxib [Celebrex] 100 mg capsule 100 mg PO BID Qty: 60 0RF Discharge Orders: Discharge ED (Routine); Ordered 02/01/22 Ordered By: Avni Hurley Discharge Diet: Usual diet Discharge Activity: Resume usual activity Patient Instructions: Opioid Safety, Pain Management Activity Restrictions/Additional Instructions: You were seen for pain with urination. Your CT and labs were normal. Cultures are pending. You were treated for urethritis prophylactically. Coding Level of Care Code ED Auto Tester for Demetria Fwd Exam Detailed
[2022-02-01 13:16] LABS: Basophils # 0.1 10^3/uL (0.0-0.1); Basophils % 0.6 %; Eosinophils # 0.3 10^3/uL (0.0-0.8); Eosinophils % 3.5 %; Hematocrit 49.4 % (42.0-52.0); Hemoglobin 16.3 g/dL (11.7-16.6); Lymphocytes # 2.6 10^3/uL (0.8-4.8); Lymphocytes % 30.9 %; Mean Corpuscular Hemoglobin 28.8 pg (28.0-34.0); Mean Corpuscular Volume 87.3 fl (80-94); Mean Platelet Volume 9.5 fL (7.4-10.4); Monocytes # 0.8 10^3/uL (0.2-0.9); Monocytes % 9.7 %; Neutrophils # 4.54 10^3/uL (1.8-7.7); Neutrophils % 55.1 %; Nucleated Red Blood Cells % 0 %; Platelet Count 288 10^3/cmm (130-400); Red Blood Count 5.66 10^6/uL (4.1-5.3); Red Cell Distribution Width 11.7 % (12.1-15.1); White Blood Count 8.3 10^3/uL (4.0-10.0)
[2022-02-01 13:34] LABS: Anion Gap 13.1 (5-19); Blood Urea Nitrogen 15 mg/dL (6-20); Calcium 9.7 mg/dL (8.5-10.5); Carbon Dioxide 27 mmol/L (22-29); Chloride 101 mmol/L (98-107); Glomerular Filtration Rate 82.3 mL/min (90-130); Glucose 99 mg/dL (65-115); Osmolality Calculated 285 mOsm/kg (285-295); Potassium 4.1 mmol/L (3.5-5.1); Sodium 137 mmol/L (136-145)
[2022-02-01 14:01] LABS: Glucose Urine UA Norm (Normal); Protein Urine Neg (Negative); Urine Appearance Clear (CLEAR); Urine Color Yellow (Yellow); pH Urine 7 (5-7)
[2022-02-01 14:02] LABS: Bilirubin Urine Neg (Negative); Blood Urine 2+ (Negative); Ketones Urine Negative (Negative); Leukocyte Esterase Urine Negative (Negative); Nitrate Urine Negative (Negative); Urobilinogen Urine Neg (Negative)
[2022-02-01 14:13] LABS: Add Urine Microscopic? YES
--- NOTE | 2022-02-01 14:20 | CT_ITS ---
WS: [id number] CT ABDOMEN AND PELVIS NONCONTRAST HISTORY: flank pain, low back pain and hematuria. TECHNIQUE: Imaging performed through the abdomen and pelvis. Coronal and sagittal reformats are submi tted. All CT scans at [facility] use at least one of these dose optimization techniques: auto mated exposure control; mA and/or kV adjustment per patient size (includes targeted exams where dose is matched to clinical indication); or iterative reconstruction. DLP: 1195.54 mGy.cm COMPARISON: 12/22/2012 Lower thorax: Small granulomata at the lung bases. Some of these are calcified and some are noncalcif ied. Normal size heart. Liver: Normal size liver. No mass or bile duct dilatation. Gallbladder: Mildly contracted. No adjacent inflammation. Pancreas: Normal size and attenuation. Normal pancreatic duct. No pancreatitis or mass. Spleen: Normal. Adrenal glands: Normal. No mass. Right kidney: Normal size kidney with no mass or hydronephrosis. Left kidney: Normal size kidney with no mass or hydronephrosis. Aorta: Normal abdominal aorta, no aneurysm or atherosclerosis. No free fluid, intraperitoneal air or significant lymphadenopathy. GI tract: Normal appendix. No GI tract obstruction or diverticulosis. Abdominal wall: Small umbilical hernia contains fat only. Pelvis: Minimally distended bladder. Osseous structures: Degenerative disc disease at L5-S1. CT/CT kidney stone [id number] IMPRESSION: 1. No renal obstruction or ureteral obstruction. 2. Normal appendix. 3. No evidence for acute diverticulitis.
[2022-02-01 14:29] LABS: Bacteria Urine TRACE /hpf; RBC Urine 0-4 /hpf (0-2); Squamous Epithelial Cell Urine RARE /hpf (0-5); WBC Urine 0-4 /hpf (0-5)
[2022-02-01] MEDS: azithromycin 250 mg Tablet 1000 MG PO (16:32)
[2022-02-01] MEDS: ketorolac 60 mg/2 mL INJ IM (16:33)
== END 2022-02-01 16:49 | disposition home or self-care (01) ==
PROVIDERS: Emergency Provider Family Medicine
DX: N34.2 Other urethritis (principal); Z86.19 Personal history of other infectious and parasitic diseases; F17.210 Nicotine dependence, cigarettes, uncomplicated
CPT/HCPCS: 36415; 74176; 80048; 81001; 85025; 87491; 87591; 96372; 99285; J0696; J1885; Q0144

== ENCOUNTER 2022-10-03 07:23 | Emergency (ER) | payer BC, SELFPAY ==
[2022-10-03 07:35] VITALS: BP 133/102; PULSE 98; TEMP 36.4; O2SAT 99; BMI 41.3
--- NOTE | 2022-10-03 07:39 | ED_ITS ---
HPI - Extremity Problem General: Chief complaint: Extremity Problem,Nontraumatic Stated complaint: right hand and wrist pain stiffness Time Seen by Provider: 10/03/22 07:24 Source: patient Mode of arrival: ambulatory Limitations: no limitations History of Present Illness: Patient is a 41-year-old male who presents to the emergency department complaining of right hand pain onset 2 days ago. Patient states he woke up with the pain. He does state he works with his hands a lot (works in a [email or web address]) but denies any injuries the day before. He does note a prior surgery over the dorsal aspect of the right hand. The pain is located to dorsal wrist and dorsal ulnar hand with some noted swelling. He has been taking Tylenol as needed for pain but this has not helped. He denies noticing any bite harvey, cuts, scrapes, abrasions, puncture wounds. Has not noticed any redness to the hand. No history of gout. He denies any fevers, chills, paresthesias, numbness, or any other symptoms. MD Complaint: extremity pain (Right hand) and extremity swelling (Right hand) Onset (ago): day(s) Pain Consistency: constant Location: right Severity scale (1-10): 8 Quality: other (Throbbing and sharp) Radiation: proximal Relieving factors: nothing Exacerbating factors: range of motion and palpation Associated symptoms: Deny chest pain, fever(s) or rash Review of Systems Const: Denies: fever(s) or chills Eyes: Denies: change in vision or blurry vision Card: Denies: chest pain, palpitations, irregular heart rhythm, lightheadedness, syncope or dyspnea on exertion Resp: Denies: dyspnea, productive cough or pain on inspiration GI: Denies: abdominal pain, nausea, vomiting, heartburn or diarrhea : Denies: difficulty urinating or dysuria Musc: Reports: extremity pain (Right hand) and extremity swelling (Right hand); Denies: neck pain, back pain or joint pain Skin/Breast: Denies: rash Neuro: Denies: numbness in extremities, weakness in extremities or sensory changes [facility] ED PFSH: Medical History Fracture of medial malleolus, right, closed Fracture of ulnar shaft, closed Hepatitis C Treated with Harvoni completed treatments 01/31/2022 Surgical History Status 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 Social History Smoking and tobacco status: current every day smoker Physical Exam Const: COMMON NORMALS: no acute distress, patient oriented x3, no limitations, alert and well nourished GENERAL APPEARANCE: cooperative NUTRITIONAL APPEARANCE: obese Extremity: COMMON NORMALS: capillary refill normal and no clubbing, cyanosis or edema GENERAL: No atrophy, No cyanosis, No deformity and No pallor RIGHT UPPER EXTREMITY: Yes wrist Right wrist: Yes inspection (normal gross inspection), Yes palpation (minimal tenderness to palpation over the dorsal wrist), Yes ROM (tenderness but maintains full ROM) and Yes neurovascular exam (normal) and Yes hand & digits Right hand and digits: Yes inspection (Minimal swelling over the dorsal left), Yes palpation (Diffuse tenderness to palpation over the dorsal aspect of the right hand), Yes ROM exam (minor pain with digit ROMs but no pain out of proportion to exam), Yes neurovascular exam (Neurovascularly intact, 2+ distal pulses), Yes other (negative [place] signs) and Yes hand special tests (Negative Phalen's and Tinel's) Neuro: COMMON NORMALS: patient oriented x3, moves all extremities, no focal motor deficits and no sensory deficits noted SENSORIUM/ORIENTATION: Yes alert Skin: COMMON NORMALS: no rashes or lesions noted GENERAL SKIN EXAM: no rashes or lesions noted TRAUMA: no lacerations or abrasions Course Vital Signs: Vital signs: Vital Signs Temperature 97.5 F L 10/03/22 07:35 Pulse Rate 85 10/03/22 08:16 Blood Pressure 155/82 10/03/22 08:16 Pulse Oximetry 94 10/03/22 08:16 Oxygen Delivery Me thod Room Air 10/03/22 08:16 MDM - Extremity (Nontraumatic) Medical Decision Making This patient was seen and evaluated in the emergency department today for 2 days of right hand pain and swelling. He not report any injuries preceding the swelling. He does report the past history of a surgical operation on the right hand but has not had complications at this date. Examination reveals diffuse tenderness to palpation over the dorsal ulnar aspect of the hand with extension into the wrist. He has no distal neurovascular deficits and his pulses are 2+. His hand is not significantly warm to the touch and there are no other signs of infectious process. ROM is slightly painful but nothing to suggest a septic arthritis. Negative signs/symptoms to suggest a tenosynovitis. X-ray of the right hand is negative for any signs of acute injury including fracture or subcutaneous infectious processes. The patient is given a shot of Toradol and a shot of Dexamethasone prior to discharge. We will also discharge him with a prescription for anti-inflammatories and a steroid taper, with instructions to rest the hand as well as to use ice as needed and strict elevation. He is ins tructed to return if he develops any fevers or signs of infection to the right hand. He agrees with this plan at this time and will be discharged home. Discharge Plan Discharge Patient Disposition: Home Clinical Impression: Hand pain, right Condition: Stable Prescriptions: New prednisone 10 mg tablet 10 mg PO DAILY 10 Days Qty: 27 0RF Rx Instructions: 6 tabs on days 1-2, 5 tabs on days 3, 4 tabs on day 4, 3 tabs on day 5, 2 tabs on day 6, 1 tab on day 7 Celebrex 100 mg capsule 100 mg PO BID Qty: 14 0RF No Action (DME) Fast Form See Rx Instructions .Route .MEDSUPPLY Qty: 1 0RF Rx Instructions: As directed (DME) Talha Salmerno See Rx Instructions .Route .MEDSUPPLY Qty: 1 0RF Rx Instructions: As directed (DME) Jaron See Rx Instructions .Route .MEDSUPPLY Qty: 1 0RF Rx Instructions: As directed hydrocodone-acetaminophen 5-325 mg tablet 1 tab PO Q4H PRN (Reason: pain) 7 Days Qty: 30 0RF celecoxib [Celebrex] 100 mg capsule 100 mg PO BID Qty: 60 0RF Discharge Orders: Discharge ED (Routine); Ordered 10/03/22 Ordered By: Coreen Fowler Patient Instructions: Pain Management Activity Restrictions/Additional Instructions: Rest, ice, and elevate the hand. Take medications as prescribed. If you de velop any fevers, signs of infection such as redness or significant increase in swelling, or any other symptoms you may have please return to the emergency department. Coding Level of Care Code ED Lens Coating Technician for Demetria Bazan
--- NOTE | 2022-10-03 07:42 | XRR_ITS ---
PROCEDURE INFORMATION: Exam: XR Right Hand Exam date and time: 10/03/2022 7:47 AM Age: 41 years old Clinical indication: Pain; Prior surgery; Surgery date: 6+ months; Surgery type: Right hand; Patient HX: Patient's hand started hurting 2 days ago when they woke up; Additional info: Right hand pain TECHNIQUE: Imaging protocol: Radiologic exam of the right hand. Views: 3 or more views. COMPARISON: CR XR hand RT min 3V* [id number] 01/31/2019 1:07 PM FINDINGS: Bones/joints: There is healed fracture of the 5th metacarpal. No acute fracture is noted. Soft tissues: There is subcutaneous edema about the wrist and hand. XR/XR hand RT min 3V* [id number] IMPRESSION: Soft tissue swelling in the right hand.
[2022-10-03] MEDS: dexamethasone 10 mg/mL INJ 8 MG IM (08:11)
[2022-10-03] MEDS: ketorolac 60 mg/2 mL INJ IM (08:11)
[2022-10-03 08:16] VITALS: BP 155/82; PULSE 85; O2SAT 94
--- NOTE | 2022-10-10 15:08 | DCPLANNER ---
manager erp called patient due to no primary care physician - no answer at this time.
--- NOTE | 2022-10-16 13:21 | DCPLANNER ---
manager cash called patient due to no primary care physician - case filler spoke with patients mother, left a message for patient to return test case developer phone call.
== END 2022-10-03 08:23 | disposition home or self-care (01) ==
PROVIDERS: Emergency Provider Physician Assistant
DX: M79.641 Pain in right hand (principal); Z86.19 Personal history of other infectious and parasitic diseases; F17.210 Nicotine dependence, cigarettes, uncomplicated
CPT/HCPCS: 73130; 96372; 99284; J1100; J1885

== ENCOUNTER 2023-11-08 12:30 | Emergency (ER) | payer BC, MEDICAID, SELFPAY ==
[2023-11-08 13:29] VITALS: BP 130/82; PULSE 79; RESP 18; TEMP 36.4; O2SAT 97; BMI 29.2
[2023-11-08 13:50] VITALS: BP 130/82; PULSE 79; RESP 18; TEMP 36.4; O2SAT 97
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
[2023-11-08 14:05] VITALS: BP 131/87; PULSE 81; O2SAT 95
[2023-11-08] MEDS: sulfamethoxazole-trimeth DS 160-800 mg Tablet 1 TAB PO (14:06)
== END 2023-11-08 14:06 | disposition home or self-care (01) ==
PROVIDERS: Emergency Provider Nurse Practitioner Family; PCP Family Medicine
DX: L02.214 Cutaneous abscess of groin (principal); Z86.19 Personal history of other infectious and parasitic diseases; Z72.0 Tobacco use
CPT/HCPCS: 99283

== ENCOUNTER 2023-11-14 09:49 | Emergency (ER) | payer BC, MEDICAID, SELFPAY ==
[2023-11-14 09:57] VITALS: BP 156/85; PULSE 82; RESP 16; TEMP 36.7; O2SAT 94; BMI 29.2
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
[2023-11-14 10:43] VITALS: BP 143/78; PULSE 81; O2SAT 98
== END 2023-11-14 10:44 | disposition home or self-care (01) ==
PROVIDERS: Emergency Provider Physician Assistant
DX: S61.203A Unspecified open wound of left middle finger without damage to nail, initial encounter (principal); Z72.0 Tobacco use; Z86.19 Personal history of other infectious and parasitic diseases; W26.8XXA Contact with other sharp object(s), not elsewhere classified, initial encounter
CPT/HCPCS: 99281

== ENCOUNTER 2024-05-15 01:10 | Emergency (ER) | payer BC, MEDICAID, SELFPAY ==
[2024-05-15 01:13] VITALS: BP 158/86; PULSE 115; RESP 16; TEMP 36.6; O2SAT 96
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
[2024-05-15 02:46] VITALS: BP 167/115; PULSE 103; RESP 18; O2SAT 96
[2024-05-15 02:47] LABS: Bacteria Urine None Seen /hpf; Hyaline Casts Urine 0-4 /lpf; RBC Urine 0-2 /hpf (0-2); Squamous Epithelial Cell Urine 0-5 /hpf (0-5); WBC Urine 0-5 /hpf (0-5)
[2024-05-15 03:02] LABS: Add Urine Microscopic? NO; Bilirubin Urine Neg (Negative); Blood Urine Neg (Negative); Glucose Urine UA Norm (Normal); Ketones Urine Negative (Negative); Leukocyte Esterase Urine Negative (Negative); Nitrate Urine Negative (Negative); Protein Urine Neg (Negative); Specific Gravity, Urine 1.005 (1.005-1.030); Urine Appearance Clear (CLEAR); Urine Color Yellow (Yellow); Urobilinogen Urine Norm (Negative); pH Urine 7 (5-7)
[2024-05-15 03:03] LABS: Charge for UA Resulting for Rev
[2024-05-15 04:11] LABS: Alanine Aminotransferase 27 U/L (0-41); Albumin Level 4.5 g/dL (3.5-5.2); Alkaline Phosphatase 111 U/L (40-130); Anion Gap 16.9 (5-19); Aspartate Amino Transferase 29 U/L (0-40); Blood Urea Nitrogen 9 mg/dL (6-20); Calcium 9.7 mg/dL (8.5-10.5); Carbon Dioxide 28 mmol/L (22-29); Chloride 102 mmol/L (98-107); Creatinine Clr Calc Pharmacy 101.1478; Globulin 2.9 g/dL (1.3-4.6); Glomerular Filtration Rate 81.6 mL/min (90-130); Glucose 98 mg/dL (65-115); Osmolality Calculated 295 mOsm/kg (285-295); Potassium 3.9 mmol/L (3.5-5.1); Sodium 143 mmol/L (136-145); Total Bilirubin 0.4 mg/dL (0.15-1.2); Total Protein 7.4 g/dL (6.6-8.7)
== END 2024-05-15 03:50 | disposition left against medical advice (07) ==
PROVIDERS: Emergency Provider Emergency Medicine
DX: Z53.21 Procedure and treatment not carried out due to patient leaving prior to being seen by health care provider (principal); Z01.89 Encounter for other specified special examinations; Z72.0 Tobacco use
CPT/HCPCS: 36415; 80053; 81001; 81003; 99283